=== PATIENT | female | born 1970 | race Two or more races ===

== ENCOUNTER → 2018-05-26 | Outpatient (CLI) | payer BC ==
[2015-04-21 23:42] VITALS: BP 146/84
[~2018-05-26] MED LIST: DICY10CA3 PO
--- NOTE | 2018-05-29 16:45 | RAD ---
DATE: 05/26/2018 EXAM: MAMMO JAVIER SCREENING BILATERAL HISTORY: Routine screening COMPARISON: 08/28/2015 mammographic examination This study was interpreted with the benefit of Computerized Aided Detection (CAD). Breast Density: SCATTERED The breast parenchyma shows scattered fibroglandular densities. Breast parenchyma level B. FINDINGS: Multiple small benign appearing masses are present but primarily seen on tomosynthesis and measure less than 0.3 cm diameter bilaterally. No dominant mass. No suspicious calcifications or distortion. IMPRESSION: Benign findings. BI-RADS CATEGORY: 1 NEGATIVE RECOMMENDED FOLLOW-UP: 12M 12 MONTH FOLLOW-UP PQRS compliance statement: Patient information was entered into a reminder system with a target due date in one year for the next mammogram. Mammography is a sensitive method for finding small breast cancers, but it does not detect them all and is not a substitute for careful clinical examination. A negative mammogram does not negate a clinically suspicious finding and should not result in delay in biopsying a clinically suspicious abnormality. "Our facility is accredited by the [employer] Mammography Program."
== END | disposition home or self-care (01) ==
LOC: MAMMO 09:12
PROVIDERS: ATTEND Physician Assistant Surgical
DX: Z12.31 Encounter for screening mammogram for malignant neoplasm of breast (principal); N63.10 Unspecified lump in the right breast, unspecified quadrant; N63.20 Unspecified lump in the left breast, unspecified quadrant
CPT/HCPCS: 77063; 77067

== ENCOUNTER 2018-06-18 14:28 | Emergency (ER) | payer BC ==
[~2018-06-18] VITALS: Ht 152.4 cm; Wt 73.5 kg
[2018-06-18] MEDS ORDERED: DICYCLOMINE 20 MG/2 ML AMPUL. IM ONE (15:30)
[2018-06-18] MEDS ORDERED: fentaNYL PF VIAL 100 MCG/2 ML VIAL IV ONE ×2 (15:30→19:15)
[2018-06-18] MEDS ORDERED: ONDANSETRON PF 4 MG/2 ML VIAL. IV ONE (15:30)
[2018-06-18] MEDS ORDERED: IV NORMAL SALINE 1000ML BAG 1,000 ML IV ONE (15:30)
--- NOTE | 2018-06-18 15:32 | PHYS DOC ---
Past Medical History Past Medical History: Anxiety, Depression, Diabetes-Type II, High Cholesterol (IRAIS MORRISON APRN) Past Surgical History: Appendectomy, Cholecystectomy, Other Additional Past Surgical Histo: PARTIAL HYST (IRAIS MORRISON APRN) Alcohol Use: Occasionally Drug Use: None (IRAIS MORRISON APRN) Adult General Chief Complaint Chief Complaint: ABDOMINAL PAIN HPI HPI 47 y/o female presents to ER via POV plaints of mid epigastric pain which r adiates into the center of her back. Patient states pain started on Monday after eating dinner. Patient states she has been intermittently nauseated denies vomiting episodes. She reports she had 3 episodes of diarrhea today. She denies any other family members with similar illness. Pt denies fever, urinary symptoms, chest pain, or shortness of air. She reports pain increases with water/food intake. She has had partial hysterectomy. She denies any recent travel. She is not a daily smoker and denies illicit drug use. Patient states she did have an alcoholic cocktail with dinner on Monday and does occasionally drink. Patient takes daily NSAIDs for arm pain. Patient reports she eats a lot of spicy foods as well. (IRAIS MORRISON APRN) Review of Systems Review of Systems Constitutional: Denies fever or chills [] Eyes: Denies change in visual acuity, redness, or eye pain [] HENT: Denies nasal congestion or sore throat [] Respiratory: Denies cough or shortness of breath [] Cardiovascular: No additional information not addressed in HPI [] GI: Denies vomiting or bloody stools. Pt reports mid epig. pain into center of back. Pt reports intermittent nausea and 3 episodes of diarrhea today : Denies dysuria or hematuria [] Musculoskeletal: Denies joint pain [] Integument: Denies rash or skin lesions [] Neurologic: Denies headache, focal weakness or sensory changes [] Endocrine: Denies polyuria or polydipsia [] All other systems were reviewed and found to be within normal limits, except as documented in this note. (IRAIS MORRISON APRN) Current Medications Current Medications Current Medications Medications (Trade) Dose Ordered Sig/Linnea Start Time Stop Time Status Last Admin Dose Admin Dicyclomine HCl (Bentyl) 20 mg 1X ONCE 06/18/18 15:30 06/18/18 15:31 DC 06/18/18 16:18 20 MG Fentanyl Citrate (Fentanyl 2ml Vial) 50 mcg 1X ONCE 06/18/18 19:15 06/18/18 19:16 DC 06/18/18 19:38 50 MCG Info (CONTRAST GIVEN -- Rx MONITORING) 1 each PRN DAILY PRN 06/18/18 18:30 06/18/18 20:18 DC Iohexol (Omnipaque 300 Mg/ml) 75 ml 1X ONCE 06/18/18 18:30 06/18/18 18:31 DC Multi-Ingredient Mouthwash/Gargle (Gi Cocktail) 20 ml 1X ONCE 06/18/18 17:15 06/18/18 17:16 DC 06/18/18 17:54 20 ML Ondansetron HCl (Zofran) 4 mg 1X ONCE 06/18/18 15:30 06/18/18 15:31 DC 06/18/18 16:15 4 MG Sodium Chloride 1,000 ml @ 1,000 mls/hr 1X ONCE 06/18/18 15:30 06/18/18 16:29 DC 06/18/18 16:14 1,000 MLS/HR (RAFY NARANJO MD) Allergies Allergies Allergies Coded Allergies Type Severity Reaction Last Updated Verified No Known Drug Allergies 05/30/14 No (RAFY NARANJO MD) Physical Exam Physical Exam Constitutional: Well developed, well nourished, no acute distress, non-toxic appearance. [] HENT: Normocephalic, atraumatic, mucous membranes pink/dry, nose normal. [] Eyes: Pupils equal, conjunctiva normal, no discharge. [] Neck: Normal range of motion, no tenderness, supple, no stridor. [] Cardiovascular:Heart rate regular rhythm, no murmur [] Lungs & Thorax: Bilateral breath sounds clear to auscultation- resp. equal/nonlabored Abdomen: Bowel sounds normal, soft- no distention/rigidity, tender mid epig area , no masses, no pulsatile masses. [] Skin: Warm, dry, no erythema, no rash. [] Back: Full ROM, no CVA tenderness. [] Extremities: No tenderness, no cyanosis, no clubbing, ROM intact, no edema. [] Neurologic: Alert and oriented X 3, normal motor function, normal sensory function, no focal deficits noted. [] Psychologic: Affect normal, judgement normal, mood normal. [] (REFFITT,IRAIS Bustillos APRN) Current Patient Data Vital Signs Vital Signs Date Time Temp Pulse Resp B/P (MAP) Pulse Ox O2 Delivery O2 Flow Rate FiO2 06/18/18 19:56 78 16 99/55 (70) 97 Room Air 06/18/18 14:34 98.1 98.1 (RAFY NARANJO MD) Lab Values Laboratory Tests Test 06/18/18 15:45 06/18/18 15:51 06/18/18 16:06 Urine Collection Type Unknown Urine Color Yellow Urine Clarity Clear Urine pH 7.0 Urine Specific [place] 1.020 Urine Protein Negative mg/dL (NEG-TRACE) Urine Glucose (UA) Negative mg/dL (NEG) Urine Ketones (Stick) Negative mg/dL (NEG) Urine Blood Negative (NEG) Urine Nitrite Negative (NEG) Urine Bilirubin Negative (NEG) Urine Urobilinogen Dipstick 0.2 mg/dL (0.2 mg/dL) Urine Leukocyte Esterase Negative (NEG) Urine RBC 0 /HPF (0-2) Urine WBC Occ /HPF (0-4) Urine Squamous Epithelial Cells Mod /LPF Urine Bacteria Few /HPF (0-FEW) Urine Mucus Slight /LPF Urine Yeast Present /HPF POC Urine HCG, Qualitative Hcg negative (Negative) White Blood Count 7.7 x10^3/uL (4.0-11.0) Red Blood Count 4.70 x10^6/uL (3.50-5.40) Hemoglobin 14.3 g/dL (12.0-15.5) Hematocrit 42.0 % (36.0-47.0) Mean Corpuscular Volume 89 fL (79-100) Mean Corpuscular Hemoglobin 31 pg (25-35) Mean Corpuscular Hemoglobin Concent 34 g/dL (31-37) Red Cell Distribution Width 12.9 % (11.5-14.5) Platelet Count 193 x10^3/uL (140-400) Neutrophils (%) (Auto) 66 % (31-73) Lymphocytes (%) (Auto) 23 % (24-48) L Monocytes (%) (Auto) 8 % (0-9) Eosinophils (%) (Auto) 3 % (0-3) Basophils (%) (Auto) 1 % (0-3) Neutrophils # (Auto) 5.1 x10^3uL (1.8-7.7) Lymphocytes # (Auto) 1.8 x10^3/uL (1.0-4.8) Monocytes # (Auto) 0.6 x10^3/uL (0.0-1.1) Eosinophils # (Auto) 0.2 x10^3/uL (0.0-0.7) Basophils # (Auto) 0.0 x10^3/uL (0.0-0.2) Sodium Level 143 mmol/L (136-145) Potassium Level 3.5 mmol/L (3.5-5.1) Chloride Level 105 mmol/L (98-107) Carbon Dioxide Level 29 mmol/L (21-32) Anion Gap 9 (6-14) Blood Urea Nitrogen 13 mg/dL (7-20) Creatinine 0.7 mg/dL (0.6-1.0) Estimated GFR (Cockcroft-Gault) 89.7 BUN/Creatinine Ratio 19 (6-20) Glucose Level 120 mg/dL (70-99) H Calcium Level 9.2 mg/dL (8.5-10.1) Total Bilirubin 0.3 mg/dL (0.2-1.0) Aspartate Amino Transferase (AST) 21 U/L (15-37) Alanine Aminotransferase (ALT) 44 U/L (14-59) Alkaline Phosphatase 90 U/L (46-116) Troponin I Quantitative < 0.017 ng/mL (0.000-0.055) Total Protein 7.8 g/dL (6.4-8.2) Albumin 3.9 g/dL (3.4-5.0) Albumin/Globulin Ratio 1.0 (1.0-1.7) Lipase 216 U/L (73-393) Laboratory Tests 06/18/18 16:06 Laboratory Tests 06/18/18 16:06 (RAFY NARANJO MD) Lab Values Laboratory Tests Test 06/18/18 15:45 06/18/18 15:51 06/18/18 16:06 Urine Collection Type Unknown Urine Color Yellow Urine Clarity Clear Urine pH 7.0 Urine Specific [place] 1.020 Urine Protein Negative mg/dL (NEG-TRACE) Urine Glucose (UA) Negative mg/dL (NEG) Urine Ketones (Stick) Negative mg/dL (NEG) Urine Blood Negative (NEG) Urine Nitrite Negative (NEG) Urine Bilirubin Negative (NEG) Urine Urobilinogen Dipstick 0.2 mg/dL (0.2 mg/dL) Urine Leukocyte Esterase Negative (NEG) Urine RBC 0 /HPF (0-2) Urine WBC Occ /HPF (0-4) Urine Squamous Epithelial Cells Mod /LPF Urine Bacteria Few /HPF (0-FEW) Urine Mucus Slight /LPF Urine Yeast Present /HPF POC Urine HCG, Qualitative Hcg negative (Negative) White Blood Count 7.7 x10^3/uL (4.0-11.0) Red Blood Count 4.70 x10^6/uL (3.50-5.40) Hemoglobin 14.3 g/dL (12.0-15.5) Hematocrit 42.0 % (36.0-47.0) Mean Corpuscular Volume 89 fL (79-100) Mean Corpuscular Hemoglobin 31 pg (25-35) Mean Corpuscular Hemoglobin Concent 34 g/dL (31-37) Red Cell Distribution Width 12.9 % (11.5-14.5) Platelet Count 193 x10^3/uL (140-400) Neutrophils (%) (Auto) 66 % (31-73) Lymphocytes (%) (Auto) 23 % (24-48) L Monocytes (%) (Auto) 8 % (0-9) Eosinophils (%) (Auto) 3 % (0-3) Basophils (%) (Auto) 1 % (0-3) Neutrophils # (Auto) 5.1 x10^3uL (1.8-7.7) Lymphocytes # (Auto) 1.8 x10^3/uL (1.0-4.8) Monocytes # (Auto) 0.6 x10^3/uL (0.0-1.1) Eosinophils # (Auto) 0.2 x10^3/uL (0.0-0.7) Basophils # (Auto) 0.0 x10^3/uL (0.0-0.2) Sodium Level 143 mmol/L (136-145) Potassium Level 3.5 mmol/L (3.5-5.1) Chloride Level 105 mmol/L (98-107) Carbon Dioxide Level 29 mmol/L (21-32) Anion Gap 9 (6-14) Blood Urea Nitrogen 13 mg/dL (7-20) Creatinine 0.7 mg/dL (0.6-1.0) Estimated GFR (Cockcroft-Gault) 89.7 BUN/Creatinine Ratio 19 (6-20) Glucose Level 120 mg/dL (70-99) H Calcium Level 9.2 mg/dL (8.5-10.1) Total Bilirubin 0.3 mg/dL (0.2-1.0) Aspartate Amino Transferase (AST) 21 U/L (15-37) Alanine Aminotransferase (ALT) 44 U/L (14-59) Alkaline Phosphatase 90 U/L (46-116) Troponin I Quantitative < 0.017 ng/mL (0.000-0.055) Total Protein 7.8 g/dL (6.4-8.2) Albumin 3.9 g/dL (3.4-5.0) Albumin/Globulin Ratio 1.0 (1.0-1.7) Lipase 216 U/L (73-393) Laboratory Tests 06/18/18 16:06 Laboratory Tests 06/18/18 16:06 (IRAIS MORRISON APRN) EKG EKG EKG obtained 06/18/18 at [address] Naranjo Sinus rhythm Rate 74 No STEMI (IRAIS MORRISON APRN) Radiology/Procedures Radiology/Procedures PROCEDURE: LIMITED ABDOMINAL DOPPLER Abdominal Doppler dated 06/18/2018. No comparison available. CLINICAL INDICATION: Mid epigastric pain extending into the back. FINDINGS: Study is limited due to overlying bowel gas. The SMA, celiac artery and aorta are not well visualized. Diffuse increased echogenicity of the liver compatible with fatty infiltration. No apparent mass. Gallbladder is surgically absent. Right kidney measures 11.2 cm in length without hydronephrosis. Left kidney was not imaged. Pancreas and IVC are obscured by overlying bowel gas. No significant ascites. IMPRESSION: 1. Limited exam due to overlying bowel gas. The aorta and great vessels are not well evaluated. 2. Fatty infiltration the liver. 3. Status post cholecystectomy. Electronically signed by: Quang Demarco MD (06/18/2018 4:14 PM) [id number] DICTATED and SIGNED BY: QUANG DEMARCO MD DATE: 06/18/18 1414 PROCEDURE: CHEST PA & LATERAL CHEST PA LATERAL History: Mid epigastric pain Comparison: April 21, 2015 Findings: 2 views of the chest are submitted. There is no infiltrate, pneumothorax, or effusion. The cardiac silhouette is within normal limits in size. Impression: 1. There is no evidence of acute cardiopulmonary disease. Electronically signed by: Danielle Waller MD (06/18/2018 3:58 PM) [id number] DICTATED and SIGNED BY: DANIELLE WALLER MD DATE: 06/18/18 2188 (IRAIS MORRISON APRN) Course & Med Decision Making Course & Med Decision Making Pertinent Labs and Imaging studies reviewed. (See chart for details) 1810: On reevaluation following GI cocktail patient reports she had slight improvement in pain but still continues to have mid epigastric pain discussed obtaining a CT abdomen and pelvis and patient is wanting this for further reassurance as to what is causing her abdominal pain. Pt's CT abd/pelvis with no acute findings and this was discussed with pt and her husb. She is in no visible distress at time of discussion. Discussed test results/EKG/imaging results and with with unremarkable results discussed plans for home d/c with Rx for Dicyclomine. Advised on avoiding NSAIDS, alcohol, and spicy/acidic foods. Discussed f/u with GI for possible EGD and further eval/care- will provide Dr. Holguin's info on d/c paperwork. Education provided on s&s to return to ER for and d/c instructions were discussed. (IRAIS MORRISON APRN) Course & Med Decision Making I was not involved in the care of this patient after 1800 on 06/18/18. (RAFY NARANJO MD) Dragon Disclaimer Dragon Disclaimer This electronic medical record was generated, in whole or in part, using a voice recognition dictation system. (IRAIS MORRISON APRN) Departure Departure Impression: Primary Impression: Abdominal pain Disposition: 01 HOME, SELF-CARE Condition: STABLE Referrals: RAY SOLIS (PCP) Patient Instructions: Abdominal Pain (Nonspecific), Gastritis, Adult Additional Instructions: Follow-up with your primary doctor and/or gastrointestinal (GI) doctor for re- evaluation and further care. As discussed avoid excessive NSAID use, alcohol, and spicy/acidic foods. Drink plenty of water. Scripts Dicyclomine Hcl (DICYCLOMINE HCL) 10 Mg Capsule 1 CAP PO PRN Q6HRS PRN for PAIN, #10 CAP 0 Refills Prov: IRAIS MORRISON APRN 06/18/18 IRAIS MORRISON APRN June 18, 2018 15:32 RAFY NARANJO MD June 22, 2018 06:08
[2018-06-18 15:56] LABS: BILIRUBIN,URINE NEGATIVE (NEG); COLOR,URINE YELLOW; NITRITE,URINE NEGATIVE (NEG); PROTEIN,URINE NEGATIVE (NEG-TRACE); UROBILINOGEN,URINE 0.2 mg/dL (0.2 mg/dL)
--- NOTE | 2018-06-18 16:01 | RAD ---
CHEST PA LATERAL History: Mid epigastric pain Comparison: April 21, 2015 Findings: 2 views of the chest are submitted. There is no infiltrate, pneumothorax, or effusion. The cardiac silhouette is within normal limits in size. Impression: 1. There is no evidence of acute cardiopulmonary disease. Electronically signed by: Shaheen Mcfarlane MD (06/18/2018 3:58 PM) [id number]
[2018-06-18 16:03] LABS: BACTERIA,URINE FEW /HPF (0-FEW); CLARITY,URINE CLEAR; SQUAMOUS EPITHELIAL CELL,UR MOD /LPF
[2018-06-18 16:04] LABS: RBC,URINE 0 /HPF (0-2); WBC,URINE OCC /HPF (0-4); YEAST,URINE PRESENT /HPF
--- NOTE | 2018-06-18 16:17 | RAD ---
Abdominal Doppler dated 06/18/2018. No comparison available. CLINICAL INDICATION: Mid epigastric pain extending into the back. FINDINGS: Study is limited due to overlying bowel gas. The SMA, celiac artery and aorta are not well visualized. Diffuse increased echogenicity of the liver compatible with fatty infiltration. No apparent mass. Gallbladder is surgically absent. Right kidney measures 11.2 cm in length without hydronephrosis. Left kidney was not imaged. Pancreas and IVC are obscured by overlying bowel gas. No significant ascites. IMPRESSION: 1. Limited exam due to overlying bowel gas. The aorta and great vessels are not well evaluated. 2. Fatty infiltration the liver. 3. Status post cholecystectomy. Electronically signed by: Quang Demarco MD (06/18/2018 4:14 PM) [id number]
[2018-06-18 16:19] LABS: BASO % 1 % (0-3); EOS # 0.2 x10^3/uL (0.0-0.7); EOS % 3 % (0-3); HEMOGLOBIN 14.3 g/dL (12.0-15.5); LYMPH # 1.8 x10^3/uL (1.0-4.8); LYMPH % 23 % (24-48); MEAN CORPUSCULAR HEMOGLOBIN 31 pg (25-35); MEAN CORPUSCULAR HGB CONC 34 g/dL (31-37); MEAN CORPUSCULAR VOLUME 89 fL (79-100); MONO # 0.6 x10^3/uL (0.0-1.1); MONO % 8 % (0-9); NEUT # 5.1 x10^3uL (1.8-7.7); NEUT % 66 % (31-73); PLATELET COUNT 193 x10^3/uL (140-400); RED CELL DISTRIBUTION WIDTH 12.9 % (11.5-14.5); WHITE BLOOD COUNT 7.7 x10^3/uL (4.0-11.0)
[2018-06-18 16:34] LABS: CALCIUM 9.2 mg/dL (8.5-10.1); CREATININE 0.7 mg/dL (0.6-1.0); GFR 89.7; POTASSIUM 3.5 mmol/L (3.5-5.1)
[2018-06-18 16:39] LABS: ALBUMIN 3.9 g/dL (3.4-5.0); TOTAL BILIRUBIN 0.3 mg/dL (0.2-1.0); TOTAL PROTEIN 7.8 g/dL (6.4-8.2)
[2018-06-18] MEDS ORDERED: LIDO:MAALOX 1:1 20 ML SINGLE DOSE. SWSW ONE (17:15)
[2018-06-18] MEDS ORDERED: IOHEXOL 300 MG/ML 100ML VIAL. IV ONE (18:30)
[2018-06-18] MEDS ORDERED: CONTRAST GIVEN. MC PRN (18:30)
--- NOTE | 2018-06-18 19:14 | RAD ---
CT scan of the abdomen and pelvis with contrast 06/18/2018 CLINICAL HISTORY: Mid epigastric pain. TECHNIQUE: After the intravenous administration of 75 cc of Omnipaque 300 only, contiguous, 5 mm axial sections were obtained through the abdomen and pelvis. One or more of the following individualized dose reduction techniques were utilized for this study: 1. Automated exposure control. 2. Adjustment of the mA and/or kV according to patient size. 3. Use of iterative reconstruction technique. FINDINGS: Comparison is made to the patient's CT scan of the abdomen dated 06/29/2003. Images through the lung bases demonstrate minimal dependent subsegmental atelectasis bilaterally. The liver, spleen, pancreas, adrenal glands and kidneys are within normal limits. Atherosclerotic calcification of the abdominal aorta is seen. The abdominal aorta tapers normally. Surgical clips are seen within the gallbladder fossa consistent with a cholecystectomy. No free fluid or free air is seen within the abdomen. There is no evidence of bowel obstruction. The appendix is partially visualized and is within normal limits. Images through the pelvis demonstrate the urinary bladder to be contracted. No adnexal mass is seen. No free fluid is noted. Minimal S-shaped curvature of the thoracolumbar spine is seen. IMPRESSION: No acute abnormality is seen. Electronically signed by: Adriel Black MD (06/18/2018 7:11 PM) [facility]
[2018-06-18] MEDS ORDERED: DICY10CA3 PO (19:53)
[2018-06-18 19:56] VITALS: BP 99/55
--- NOTE | 2018-06-19 06:46 | EKG ---
[facility] [address] [place] [address] Test Date: 2018-06-18 Test Time: 16:45:54 Pat Name: BRANDON BLAS Department: Room: Gender: F Software Applications Specialist: : [id number] Requested By: IRAIS MORRISON Order Number: [id number] Reading MD: Vincent Landon Measurements Intervals [place] Rate: 74 P: 27 HI: 138 QRS: 9 QRSD: 78 T: 7 QT: 396 QTc: 440 Interpretive Statements SINUS RHYTHM NORMAL ECG RI6.01 No previous ECG available for comparison Electronically Signed On 07-13-2018 11:41:11 CDT by Vincent Landon
== END 2018-06-18 20:09 | disposition home or self-care (01) ==
LOC: ER 14:28
DX: R10.13 Epigastric pain (principal); R11.0 Nausea; R19.7 Diarrhea, unspecified; K76.0 Fatty (change of) liver, not elsewhere classified; F41.9 Anxiety disorder, unspecified; F32.9 Major depressive disorder, single episode, unspecified; E11.9 Type 2 diabetes mellitus without complications; E78.00 Pure hypercholesterolemia, unspecified; Z90.89 Acquired absence of other organs; Z90.49 Acquired absence of other specified parts of digestive tract
CPT/HCPCS: 36415; 71046; 74177; 80053; 81001; 81025; 83690; 84484; 85025; 93005; 93976; 96361; 96372; 96374; 96375; 96376; 99285; J0500; J2405; J3010; J7030